=== PATIENT | female | born 1985 | race African-American/Black ===

== ENCOUNTER 2016-08-12 16:49 | Emergency (ER) | payer OTHER | END 2016-08-12 17:35 | disposition home or self-care (01) | LOC: CFTX 16:49 | DX: L02.415 Cutaneous abscess of right lower limb (principal); F17.210 Nicotine dependence, cigarettes, uncomplicated; Z90.49 Acquired absence of other specified parts of digestive tract; Z88.0 Allergy status to penicillin; Z98.890 Other specified postprocedural states | CPT/HCPCS: 10060; 99283 ==

== ENCOUNTER 2016-08-25 10:22 | Emergency (ER) | payer OTHER ==
--- NOTE | ~2016-08-25 | EKG ---
PATIENT: NIRMALA JOSEPH UNIT #: [id number] Ventricular Rate: 73 BPM Atrial Rate: 73 BPM P-R Interval: 170 ms QRS Duration: 72 ms Q-T Interval: 378 ms QTC Calculation(Bezet): 416 ms P [place]: 15 degrees Calculated R [place]: 24 degrees Calculated T [place]: 14 degrees Diagnosis Line: Normal sinus rhythm Diagnosis Line: Nonspecific ST and T wave abnormality Diagnosis Line: Otherwise normal ECG Diagnosis Line: No previous ECGs available Diagnosis Line: Confirmed by SUGAR DECKER MD ([id number]) on 08/26/2016 Diagnosis Line: 10:36:06 AM INTERPRETING MD: JERONIMO BAZAN
--- NOTE | ~2016-08-25 | CR72 ---
[facility] A Service of [facility] & [facility] RADIOLOGY TEXT RESULTS PATIENT: NIRMALA JOSEPH LOCATION: [facility] : 85 UNIT #: [id number] AGE: [address]: Mitchel Santamaria MD SEX: F ORDER DR: [id number] [facility] [address] [place], [place] [address] [id number] E MR#: [id number] Acc #: [id number] NAME: NIRMALA JOSEPH : 1985 SEX: F STUDY DATE/TIME: 08/25/2016 10:59 UNIT: [facility] ROOM: STUDY DESCRIPTION: CR Chest Single View Portable Attending Physician: Mitchel Santamaria M.D. Ordering Physician: Ed Doctor [id number] [facility] Primary Care Physician: Primary Care Physician No MEDICAL IMAGING REPORT This report is preliminary unless electronic signature is present EXAM Frontal chest 08/25/2016 INDICATION 31-year-old female with chest pain that began 1 week ago. History of tobacco abuse for 6 years. Cough, short of breath. TECHNIQUE Frontal chest was performed. No comparisons. FINDINGS Cardiac silhouette within normal limits. Vascularity unremarkable. Lung volumes are low but the lungs are clear. No pneumothorax. IMPRESSION Low-volume image; otherwise, negative frontal chest. We have no comparisons. Dictated by... Dread Syed M.D. THIS IS AN ELECTRONICALLY VERIFIED REPORT Dread Syed M.D. at 08/26/2016 7:31 AM CAITLIN/betty TD: 08/25/2016 11:20 JOB #: [id number] MEDICAL IMAGING REPORT Page 1 of 1 COPY
[2016-08-25 10:58] LABS: POC - CKMB <1.0 ng/mL (0.0-7.9); POC - TROPONIN <0.05 ng/mL (<=0.05)
[2016-08-25] MEDS ORDERED: XARELTO15 MG PO (11:05)
[2016-08-25] MEDS ORDERED: COREG6.25 MG PO (11:05)
[2016-08-25 11:06] LABS: BASOPHIL% 0.5 % (0-2.5); EOSINOPHIL# 0.3 X10e3 (0-0.7); EOSINOPHIL% 4.4 % (0.0-7.0); HEMATOCRIT 38.2 % (35.0-45.0); HEMOGLOBIN 12.3 gm/dL (12.0-16.0); LYMPHOCYTE# 1.6 X10e3 (1.0-3.5); LYMPHOCYTE% 28.7 % (17.0-45.0); MEAN CORPUSCULAR HEMOGLOBIN 29.8 PG (28-34); MEAN CORPUSCULAR HGB CONC 32.4 g/dL (30-36); MEAN PLATELET VOLUME 8.7 FL (6.5-11.5); MONOCYTE# 0.4 X10e3 (0-1.0); MONOCYTE% 7.6 % (3.0-12.0); NEUTROPHIL# 3.4 X10e3 (1.5-7.1); NEUTROPHIL% 58.8 % (40-75); PLATELET COUNT 270 X10e3 (140-420); RED BLOOD COUNT 4.15 X10e (3.90-5.30); RED CELL DISTRIBUTION WIDTH 12.7 % (11.0-15.5); WHITE BLOOD COUNT 5.7 X10e3 (4.0-10.5)
[2016-08-25] MEDS ORDERED: LISINOPRIL PO (11:06)
[2016-08-25] MEDS ORDERED: AMIODARONE HCL100 MG PO (11:06)
[2016-08-25] MEDS ORDERED: AMLODIPINE BESYL5 MG PO (11:06)
[2016-08-25] MEDS ORDERED: CO Q-10300 MG PO (11:07)
[2016-08-25] MEDS ORDERED: LEVO-T25 MCG PO (11:07)
[2016-08-25] MEDS ORDERED: CLARITIN10 M2 PO (11:08)
[2016-08-25] MEDS ORDERED: VITAMIN D35000 UNIT PO (11:08)
[2016-08-25] MEDS ORDERED: VITAMIN B122500 MCG PO (11:09)
[2016-08-25] MEDS ORDERED: ASPIRIN81 M2 PO (11:09)
[2016-08-25 11:10] LABS: DIFF IND NO
[2016-08-25] MEDS ORDERED: LASIX20 MG PO (11:10)
[2016-08-25] MEDS ORDERED: IRON325 MG PO (11:10)
[2016-08-25] MEDS ORDERED: K-DUR10 MEQ PO (11:11)
[2016-08-25 11:23] LABS: ALBUMIN SERUM 3.5 g/dL (3.5-5.0); BILIRUBIN, DIRECT 0.1 mg/dL (0.0-0.2); BILIRUBIN,INDIRECT 0.6 mg/dL (0.0-0.9); BILIRUBIN,TOTAL 0.7 mg/dL (0.2-2.0); BUN/CREATININE RATIO 17.5; CALCIUM SERUM 8.7 mg/dL (8.4-10.2); CREATININE SERUM 0.8 mg/dL (0.6-1.4); POTASSIUM 3.3 mmol/L (3.5-5.1); PROTEIN TOTAL SERUM 6.9 g/dL (6.0-8.3)
[2016-08-25 12:36] LABS: POC - CKMB <1.0 ng/mL (0.0-7.9); POC - TROPONIN <0.05 ng/mL (<=0.05)
== END 2016-08-25 13:08 | disposition home or self-care (01) ==
LOC: CED 10:22
PROVIDERS: Emergency Medicine
DX: R07.89 Other chest pain (principal); F41.9 Anxiety disorder, unspecified; Z90.49 Acquired absence of other specified parts of digestive tract; Z88.0 Allergy status to penicillin; F17.200 Nicotine dependence, unspecified, uncomplicated
CPT/HCPCS: 36415; 71010; 80048; 80076; 82553; 84484; 85025; 93005; 99284

== ENCOUNTER 2016-09-27 11:50 | Emergency (ER) | payer OTHER ==
[~2016-09-27 11:50] MED LIST: AMIODARONE HCL100 MG PO; AMLODIPINE BESYL5 MG PO; ASPIRIN81 M2 PO; CLARITIN10 M2 PO; CO Q-10300 MG PO; COREG6.25 MG PO; IRON325 MG PO; K-DUR10 MEQ PO; LASIX20 MG PO; LEVO-T25 MCG PO; LISINOPRIL PO; VITAMIN B122500 MCG PO; VITAMIN D35000 UNIT PO; XARELTO15 MG PO
== END 2016-09-27 15:09 | disposition home or self-care (01) ==
LOC: CED 11:50 → CFTX 11:50
DX: N61.1 Abscess of the breast and nipple (principal); K21.9 Gastro-esophageal reflux disease without esophagitis; Z90.89 Acquired absence of other organs; F17.210 Nicotine dependence, cigarettes, uncomplicated; Z88.0 Allergy status to penicillin
CPT/HCPCS: 10060; 99282